=== PATIENT | female | born 1960 | race Caucasian/White ===

== ENCOUNTER 2024-08-01 04:57 | Observation (INO) ==
--- NOTE | 2024-06-29 12:11 | PAT Medication Instructions ---
Medication Instructions Date of Service June 29, 2024 Home Medications atorvastatin 10 mg tablet 10 mg PO QAM metoprolol succinate 25 mg tablet,extended release 24 hr 25 mg PO QAM multivitamin (Daily Multi-Vitamin tablet) 1 tab PO DAILY cranberry fruit 450 mg tablet (cranberry) 450 mg PO DAILY fluticasone propionate 50 mcg/actuation nasal spray,suspension 1 spray intranasal DAILY Continue as directed fluticasone propionate 50 mcg/actuation nasal spray,suspension 1 spray intranasal DAILY DO NOT take the morning of surgery multivitamin (Daily Multi-Vitamin tablet) 1 tab PO DAILY cranberry fruit 450 mg tablet (cranberry) 450 mg PO DAILY Take morning of surgery With a small sip of water, OTHERWISE NOTHING TO EAT OR DRINK AFTER MIDNIGHT: atorvastatin 10 mg tablet 10 mg PO QAM metoprolol succinate 25 mg tablet,extended release 24 hr 25 mg PO QAM Other Notes If you have any questions please call us at [phone] or [phone] or [phone] or [phone]
--- NOTE | 2024-07-05 13:12 | Anesthesiology Consultation ---
Date of Service July 05, 2024 Assessment & Plan (1) Encounter for pre-operative examination: Chart Review Chart Review: Acceptable Risk for Surgery and Patient seen in Pre Admission Testing Pt currently scheduled as 23 hours observation. If surgeon decides to change patient to Same Day Joint, patient would be acceptable risk for EVIN, pending patient is motivated, has good support and surgeon's office completes Same Day Joint Program preop requirements. Per PAT appt on 07/05/24, no recent illness/disease exposures, illness related symptoms, or recent illness/disease positive tests. Will leave to surgeon's discretion if preop Covid testing needed Teaching & Discussion Pre-Anesthesia Teaching/Discussion Notes: Instructed NPO after midnight before surgery,except medications with 15 cc of water. Medication instructions provided according to the PAT guidelines. History Surgery Operation Date: 08/01/24 10:20 Proposed Procedures p Left Anterior Total Hip Arthroplasty - Indra Tobin DO Height/Weight Height: 5 ft 6 in Weight: 80.6 kg Allergies Allergy/AdvReac Type Severity Reaction Status Date / Time adhesive tape Allergy Unknown Redness of Verified 06/28/24 10:46 Skin Medications Home Medications Medication Instructions Recorded Confirmed Last Taken atorvastatin 10 mg tablet 10 mg PO QAM 04/26/24 06/28/24 Unknown metoprolol succinate 25 mg 25 mg PO QAM 04/26/24 06/28/24 Unknown tablet,extended release 24 hr multivitamin (Daily Multi-Vitamin 1 tab PO DAILY 04/26/24 06/28/24 Unknown tablet) cranberry fruit 450 mg tablet 450 mg PO DAILY 06/28/24 06/28/24 Unknown (cranberry) fluticasone propionate 50 1 spray intranasal DAILY 06/28/24 06/28/24 Unknown mcg/actuation nasal spray,suspension Past Medical History Medical History Dyslipidemia History of palpitations (2021) was evaluated by cardio @ [facility] - was discharged did have heart monitor and ECHO- no issues per patient HTN (hypertension) Hx: UTI (urinary tract infection) no current urinary symptoms Osteoarthritis Pulmonary nodule benign; yearly monitoring Seasonal allergies Snores - unknown with apnea - no hx of sleep study Exercise / Class Metabolic Activity III < 4 Walking/Shop/Light housework (one flight of stairs- no chest pain, mild SOB due to hip pain and stiffness ) Past Surgical History Surgical History Hx of arthroscopic knee surgery right Hx of colonoscopy Hx of tubal ligation Past Anesthesia History No Hx of Anesthesia Complications and No Family Hx of Anesthesia Complications History of PONV No Hx of PONV and No Hx of Motion Sickness Social History Smoking Status: Current every day smoker Smoking cigarettes per day: 20 cigs per day - advised Do You Dip or Chew Tobacco: No Hx Alcohol Use: Yes alcohol intake frequency: a few times a month Hx Substance Use: No substance use type: does not use Review of Systems - Chronic post nasal drip- stable/chronic Patient denies chest pain, shortness of breath at rest, dyspnea on exertion, reflux, cough, wheezing, palpitations. No hx of seizures, stroke, MD. No hx of blood clots or blood transfusions Physical Exam Vital Signs VITALS BP 114/76 P 84 TEMP 98.0 SP02 96% RESP 16 Constitutional no acute distress ENMT Mouth: no TMJ clicking Thyromental Distance: < 3.5 Finger Breadths (3.0) Mallampati Class: III Neck neck extension not limited Respiratory normal respiratory effort; no respiratory distress Auscultation: lungs clear to auscultation bilaterally; no wheezes Cardiovascular Rate/Rhythm: regular rate and regular rhythm Heart Sounds: no murmur Vessels: no carotid bruit Musculoskeletal Spine: + kyphosis; no pain with cervical ROM Extremities: extremities normal to inspection Psychiatric Orientation: alert Lab Results Anesthesia Preop Results Results Anesthesia Widget: WBC 10.33 K/ul (4.8-10.8) 07/05/24 Hgb 15.5 g/dl (12.0-16.0) 07/05/24 Hct 45.9 % (37.0-47.0) 07/05/24 Plt 238 K/uL (130-400) 07/05/24 Na 137 mmol/L (136-145) 07/05/24 K 4.2 mmol/L (3.5-5.1) 07/05/24 Cl 104 mmol/L (98-107) 07/05/24 CO2 24 mmol/L (21-32) 07/05/24 BUN 12 mg/dl (6-23) 07/05/24 Creat 0.58 mg/dl (0.6-1.2) L 07/05/24 Glucose Level 99 mg/dl (70-99(Fasting)) 07/05/24 PT 10.5 Seconds (9.0-12.0) 07/05/24 PTT 32 Seconds (21-31) H 07/05/24 INR 1.0 (0.9-1.1) 07/05/24 Blood Type A Positive 07/05/24 Antibody Screen NEGATIVE 07/05/24 Testing Electrocardiogram Date: 07/05/24 Findings: + NSR @ (79bpm) Left anterior fascicular block Possible inferior infarct, age undetermined (Discussed with Dr Chinchilla- patient with good functional status, ECHO from 2022 without acute issues, [employer] EKG from 01/30/23 scanned into chart (similar in appearance by personal visual inspection)- patient can proceed as scheduled) Chest X-Ray Date: 07/05/24 Findings: + NAD Echocardiogram Date: 04/01/23 EF: 55-59% LV Function: normal RWMA: + none Other Findings: + diastolic dysfunction (Grade I ); no LVH Moderate mitral annular calcification. Mitral valve chordae are focally calcified. Mitral stenosis is absent. Significant MR is absent. Other Testing Holter monitor 03/09/23= "The underlying rhythm was predominantly sinus. Overall PAC and PVC burden was low. . No other atrial or ventricular arrhythmias recorded"
--- OUTSIDE RECORDS SUMMARY | 2024-08-01 05:03 | External Medical Summary | Summary of Care ---
Author Name Unknown Organization [facility] Address [address] [facility] [place] [address] Phone [phone] Care Team Providers Care Caustics Loader Name Role Phone Samra Israel PA-C Primary Care Provider Reason for Visit * Reason Comments eRx-Medication Refill Encounter Details Date Type Department Care Team ([facility] Contact Info) Description 07/20/2024 Refill [facility] [address] [place] [address] Samra Israel PA-C [address] [place] [phone] Allergies No known active allergiesdocumented as of this encounter (statuses as of 07/23/2024) Medications MULTI-VITAM OR SOLN qd 0 07/13/20 03 Active Cranberry 1000 MG Capsule One daily Active Acetaminophen 500 MG Oral Tablet Take 2 Tablets by mouth every 6 hours as needed. Active Atorvastatin Calcium 10 MG Oral Tablet (Lipitor)Indic ations:Dyslipi demia, goal LDL below 160 TAKE 1 TABLET BY MOUTH AT BEDTIME 90 Tablet 3 12/26/19 24 Active methylPREDNISo lone 4 MG Oral Tablet Therapy Pack (Medrol Dosepack) follow package directions Fill only if requested 21 Tablet 02/11/20 24 Active Fluticasone Propionate 50 MCG/ACT Nasal Suspension (Flonase)Indic ations:Acute sinusitis Administer 2 Sprays into each nostril in the morning. 48 g 1 05/11/20 24 Active Metoprolol Succinate ER 25 MG Oral Tablet Extended Release 24 Hour (toPROL XL) Take 1 Tablet by mouth in the morning. 90 Tablet 3 07/23/20 24 Active Metoprolol Succinate ER 25 MG Oral Tablet Extended Release 24 Hour (toPROL XL) Take 1 Tablet by mouth in the morning. In the morning.. 90 Tablet 3 07/02/20 23 024 Discontinued documented as of this encounter (statuses as of 07/23/2024) Active Problems Problem Noted Date Diagnosed Date Overweight (BMI 25.0-29.9) 07/14/2022 Tobacco use disorder 07/14/2022 Incidental lung nodule, > 3mm and < 8mm 03/31/20 Overview (09/02/2022): Stable 07/2022; nodules up to 5mm. Repeat after 1 year Hyperlipidemia with target LDL less than 130 01/2012 Overview (01/14/2016): ICD-10 update of inactive term HTN, GOAL BELOW 140/90 08/02/2009 Overview (08/02/2009): Modified per HTN protocol #16. Other allergic rhinitis 10/12/2008 Overview (07/07/2017): ICD-10 update of inactive term documented as of this encounter (statuses as of 07/23/2024) Resolved Problems Problem Noted Date Diagnosed Date Resolved Date Ocular migraine 05/11/2013 10/10/2019 Obesity, Class I, BMI 30.0-3 4.9 (see actual BMI) 08/18/2012 07/14/2022 ADVANCE DIRECTIVE INFORMATION 05/21/2005 11/25/2019 Overview (05/21/2005): No, Advance Directive brochure given to patient at prior appointment. HYPERTENSION NOS 08/06/2009 Overview (08/06/2009): Modified per HTN protocol #16. documented as of this encounter (statuses as of 07/23/2024) Immunizations Name Administration Dates Next Due COVID-19 mRNA, LNP-s, No Pre serve, 2-Dose Series (Pfizer) 08/13/2021,12/31/2020,12/10/2020 COVID-19, LNP-s, No Preserve , Mitch-sucrose, Ages 12+ (Pfizer) 05/07/2022 PPD 05/08/2014 Pneumococcal Conjugate Vacci ne, 20-valent ([id number]) 01/12/2023 Seasonal Influenza, PF, 6 M & above, IM , (FluLaval or Fluzone) 07/06/2023,07/14/2022,07/08/2021,2019,10/10/2019 TD - Tetanus/Diptheria (ADULT) 02/15/2008 TD, Preservative Free 08/31/2013 documented as of this encounter Social History Tobacco Use Types Packs/Day Years Used Date Smoking Tobacco: Every Day Cigarettes 1 40 Smokeless Tobacco: Never Alcohol Use Standard Drinks/Week Comments Yes 0 (1 standard drink = 0.6 oz pur e alcohol) occasional PHQ-2 Answer Date Recorded PHQ Adult Total Score 0 12/23/2023 Utilities Answer Date Recorded Do you have trouble paying y our heating, water, or electric bill? (Adult - for ages 18 years and over) Not on file 03/01/2024 Is your family able to pay t he heat, water, or electric bill? (Household - for ages 0-17 years) Not on file 03/01/2024 Does your family have access to good internet? (Household - for ages 0-17 years) Not on file 03/01/2024 Social Connections Answer Date Recorded How often do you feel lonely or isolated from those around you? 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 Authorizing Provider: SAMRA ISRAEL * Telephone Encounter - Sendori, [facility] - 07/22/2024 10:33 AM EST Pending Prescriptions: Disp Refills Metoprolol Succinate ER 25 MG Oral Tablet *90 Tab*3 Sig: Take 1 Tablet by mouth in the morning. * Telephone Encounter - Anne-Marie Pate RPh - 07/21/2024 2:45 PM ESTPending Prescriptions: Disp Refills Metoprolol Succinate ER 25 MG Oral Tablet *90 Tab*3 Sig: Take 1 Tablet by mouth in the morning. * Telephone Encounter - Anne-Marie Pate RPh - 07/21/2024 2:42 PM EST Patient previously prescribed medication by cardiology. To follow up with cardiology as needed. Provider requesting PCP to take over refills. Please approve if agreeable. Thanks, Anne-Marie Pate, Sandra Clinical Pharmacist [facility] 07/21/2024, 2:43 PM documented in this encounter Plan of Treatment Health Maintenance Due Date Last Done Comments HPV/Co-Test 1990 Cologuard 2005 Sigmoidoscopy 2005 Zoster Vaccines (1 of 2) 2010 DTap/Tdap Vaccines (1 - Tdap) 09/01/2013 08/31/2013, 02/15/2008 Fecal Occult Blood Test 06/30/2014 06/30/2013, 07/13 COVID-19 Vaccine ( season) 2024 05/07/2022, 08/13/2021, 12/31/2020, Additional history exists Influenza Vaccine (FLU shot) (#1) 2024 07/06/2023, 07/14/2022, 07/08/2021, Additional history exists Mammogram 08/07/2024 08/07/2023, 1102/2023, 06/23/2022, Additional history exists Depression Screening 12/22/2024 12/23/2023 GFR 03/18/2025 03/18/2024, 07/0 01/2023, 01/30/2023, Additional history exists Cervical Cancer Screening 07/14/2025 Pap Smear 07/14/2025 07/14/2022, 01/13, 03/05/2016, Additional history exists Albumin/Creatinine Ratio 07/06/2026 07/06/2023, 06/16 Diabetes Screening 03/18/2027 03/18/2024, 0 03/18/2023, 01/30/2023, Additional history exists Colonoscopy 02/22/2029 02/22/2019, 02/22/2019 Colorectal Cancer Screening 02/22/2029 Lipid Panel 03/18/2029 03/18/2024, 07/0 01/2023, 03/07/2022, Additional history exists Pneumococcal Vaccine: Pediatrics (0 to 5 Years) and At-Risk Patients (6 to 64 Years) Completed 01/12/2023 Lung Cancer Screening Completed 09/10/2023, 022 HPV (Gardasil) Vaccine Aged Out No lo nger eligible based on patient's age to complete this topic Hepatitis B Vaccine Aged Out No longe r eligible based on patient's age to complete this topic MENINGOCOCCAL (MENACTRA/MENVEO) Aged Out No longer eligible based on patient's age to complete this topic documented as of this encounter Medical Devices Not on filedocumented as of this encounter Care Teams Caustics Loader Relationship Specialty Start Date End Date Samra Israel PA-C [address] [place] [address] [phone] PCP - General Physician Dairy Feed Mixing Operator 12/19/18 documented as of this encounter
--- OUTSIDE RECORDS SUMMARY | 2024-08-01 05:03 | External Medical Summary | Summary of Care ---
Author Name Unknown Organization [facility] Address [address] [facility] [place] [address] Phone [phone] Care Team Providers Care Adon Name Role Phone Samra Hess PA-C Primary Care Provider Reason for Visit * Reason Onset Date Comments Medication Refill 07/20/2024 Encounter Details Date Type Department Care Team ([facility] st Contact Info) Description 07/20/20[address] [facility] [address] [place] [address] Merritt Briones PA-C [address] [place] [address] Dyslipidemia, goal LDL below 160 Allergies No known active allergiesdocumented as of this encounter (statuses as of 07/21/2024) Medications Medication Sig Dispensed Refills Start Date End Date Status MULTI-VITAM OR SOLN qd 0 07/13/2003 Activ e Cranberry 1000 MG Capsule One daily Active Acetaminophen 500 MG Oral Tablet Take 2 Tablets by mouth every 6 hours as needed. Active Metoprolol Succinate ER 25 MG Oral Tablet Extended Release 24 Hour (toPROL XL) Take 1 Tablet by mouth in the morning. In the morning.. 90 Tablet 3 07/02/2023 Active Atorvastatin Calcium 10 MG Oral Tablet (Lipitor)Indication s:Dyslipidemia, goal LDL below 160 TAKE 1 TABLET BY MOUTH AT BEDTIME 90 Tablet 3 12/26/2023 Active methylPREDNISolone 4 MG Oral Tablet Therapy Pack (Medrol Dosepack) follow package directions Fill only if requested 21 Tablet 02/11/2024 Active Fluticasone Propionate 50 MCG/ACT Nasal Suspension (Flonase)Indication s:Acute sinusitis Administer 2 Sprays into each nostril in the morning. 48 g 1 05/11/2024 Active documented as of this encounter (statuses as of 07/21/2024) Active Problems Problem Noted Date Diagnosed Date Overweight (BMI 25.0-29.9) 07/14/2022 Tobacco use disorder 07/14/2022 Incidental lung nodule, > 3mm and < 8mm 03/31/20 19 Overview: Stable 07/2022; nodules up to 5mm. Repeat after 1 year Hyperlipidemia with target LDL less than 130 01/2012 Overview: ICD-10 update of inactive term HTN, GOAL BELOW 140/90 08/02/2009 Overview: Modified per HTN protocol #16. Other allergic rhinitis 10/12/2008 Overview: ICD-10 update of inactive term documented as of this encounter (statuses as of 07/21/2024) Resolved Problems Problem Noted Date Diagnosed Date Resolved Date Ocular migraine 05/11/2013 10/10/2019 Obesity, Class I, BMI 30.0-3 4.9 (see actual BMI) 08/18/2012 07/14/2022 ADVANCE DIRECTIVE INFORMATION 05/21/2005 11/25/2019 Overview: No, Advance Directive brochure given to patient at prior appointment. HYPERTENSION NOS 08/06/2009 Overview: Modified per HTN protocol #16. documented as of this encounter (statuses as of 07/21/2024) Immunizations Name Administration Dates Next Due COVID-19 mRNA, LNP-s, No Pre serve, 2-Dose Series (i[employer]ulfillment) 08/13/2021,12/31/2020,12/10/2020 COVID-19, LNP-s, No Preserve , Mitch-sucrose, Ages 12+ (Pfizer) 05/07/2022 PPD 05/08/2014 Pneumococcal Conjugate Vacci ne, 20-valent ([id number]) 01/12/2023 Seasonal Influenza, PF, 6 M & [...] years and over) Not on file 03/01/2024 Sex and Gender Information Value Date Recorded Sex Assigned at Female 10/29/2020 11:31 AM EST Gender Identity Female 10/29/2020 11:31 AM EST Sexual Orientation Straight 10/29/2020 11 :31 AM EST Job Start Date Occupation Industry Not on file Not on file Not on file documented as of this encounter Miscellaneous Notes * Telephone Encounter - Indra Petty [facility] - 07/21/2024 2:13 PM ESTRefused Prescriptions: Disp Refills Atorvastatin Calcium 10 MG Oral Tablet (Li*90 Tab*3 Sig: Take 1Tablet by mouth at bedtime.Refused By: INDRA PETTY for Refusal: Duplicate Request------ documented in this encounter Plan of Treatment [...] 07/08/2021, Additional history exists Mammogram 08/07/2024 08/07/2023, 110 02/2023, 06/23/2022, Additional history exists Depression Screening 12/22/2024 [...] Not on filedocumented as of this encounter Visit Diagnoses Diagnosis Dyslipidemia, goal LDL below 160 Other and unspecified hyperlipidemia documented in this encounter Care Teams Adon Relationship Specialty Start Date End Date Samra Hess PA-C [address] [place] [id number] PCP - General Physician Health And Wellness Sales Consultant 12/19/18 documented as of this encounter
--- OUTSIDE RECORDS SUMMARY | 2024-08-01 05:03 | External Medical Summary | Summary of Care ---
Author Name Unknown Organization [facility] Address [address] [facility] [place] [address] Phone [phone] Care Team Providers Care Cocoa Butter Filter Operator Name Role Phone Samra Hess PA-C Primary Care Provider Reason for Visit * Reason Onset Date Comments Medication Refill 07/20/2024 Encounter Details Date Type Department Care Team (Late st Contact Info) Description 07/20/2024 Refill Cardiology, [facility] [address] [place] [phone] Kirsten Villafuerte CRNP [address] [facility] [place] [phone] Allergies No known active allergiesdocumented as of [...] mRNA, LNP-s, No Pre serve, 2-Dose Series (Tradyo) 08/13/2021,12/31/2020,12/10/2020 COVID-19, LNP-s, No Preserve , Mitch-sucrose, Ages 12+ (Pfizer) 05/07/2022 PPD 05/08/2014 Pneumococcal Conjugate Vacci ne, 20-valent ([id number]) 01/12/2023 Seasonal Influenza, PF, 6 M & [...] encounter Miscellaneous Notes * Telephone Encounter - Felipe Lopez - 07/21/2024 2:18 PM ESTRefused Prescriptions: Disp Refills Metoprolol Succinate ER 25 MG Oral Tablet *90 Tab*3 Sig: Take 1Tablet by mouth in the morning. In the morning..Refused By: FELIPE LOPEZason for Refusal: Duplicate Request documented in this encounter Plan of Treatment [...] filedocumented as of this encounter Care Teams Cocoa Butter Filter Operator Relationship Specialty Start Date End Date Samra Hess PA-C [address] [place] [address] [place] [phone] PCP - General Physician Labourers 12/19/18 documented as of this encounter
[2024-08-01] MEDS: LR 500ML BOLUS, THEN 15ML/HR IV SCH (05:51)
[2024-08-01] MEDS: GABAPENTIN 300 MG CAP PO SCH (05:52)
[2024-08-01] MEDS: dexAMETHasone**PF** 10 MG/ML VIAL IV SCH (05:52)
[2024-08-01] MEDS: ACETAMINOPHEN 500 MG TAB PO SCH (05:52)
[2024-08-01] MEDS: LR 60ML/HR IV SCH (05:52)
[2024-08-01] MEDS ORDERED: BUPIVACAINE 0.5 % 5 MG/1 ML PF 10ML VIAL ONE (06:17)
[2024-08-01] MEDS ORDERED: MIDAZOLAM HCL 1 MG/ML 2ML VIAL ONE (06:38)
[2024-08-01] MEDS ORDERED: fentaNYL citrate PF 100 MCG/2 ML VIAL ONE (06:39)
--- NOTE | 2024-08-01 06:39 | History & Physical Bridge Note ---
Date of Service August 01, 2024 History & Physical Bridge Note I have examined the patient, reviewed the History & Physical and in the interval since the performance of the History & Physical I have noted the following changes of clinical significance: no changes noted
[2024-08-01] MEDS ORDERED: ePHEDrine sulfate 50 MG/ML AMP IV PRN (06:40)
[2024-08-01] MEDS ORDERED: ATROPINE SULFATE 0.1 MG/ML 10ML SYR IV PRN (06:40)
[2024-08-01] MEDS ORDERED: ONDANSETRON INJ 2 MG/ML 2 ML VIAL IV PRN ×2 (06:40→08:29)
[2024-08-01] MEDS ORDERED: fentaNYL citrate PF 100 MCG/2 ML VIAL IV PRN (06:40)
[2024-08-01] MEDS: TRANEXAMIC ACID 1,000 MG **IV Pre-op IV SCH (06:46)
[2024-08-01] MEDS: ceFAZolin 2000MG 2,000 MG/15 ML SYR IV SCH ×2 (06:57→15:55)
[2024-08-01] MEDS ORDERED: PHENYLEPHRINE HCL 10 MG/ML VIAL ONE (07:46)
[2024-08-01] MEDS ORDERED: LIDOCAINE 2% 2 ML VIAL/AMP(20MG/ML) INFIL ONE (07:46)
[2024-08-01] MEDS ORDERED: PROPOFOL IV EMULSION 10 MG/ML 20 ML VIAL IV ONE (07:46)
[2024-08-01] MEDS: ROPIV 0.5% 246mg, Ketorolac 30mg, EPINEPHrine 0.5mg in NSS INFIL SCH (07:58)
[2024-08-01] MEDS: TRANEXAMIC ACID 1,000 MG **IV Intra-op IV SCH (08:00)
[2024-08-01] MEDS: ORTHO JOINT ANESTHETIC ONE (08:04)
--- NOTE | 2024-08-01 08:05 | Operative Report ---
PG Post Operative Report Pre & Post Diagnosis Operation Date: 08/01/24 07:00 Pre-Op Diagnosis: Left Hip Osteoarthritis Post-Op Diagnosis: Left Hip Osteoarthritis I identified the patient and participated in the time-out.: Yes Procedure Operation Date: 08/01/24 07:00 Actual Procedures p Left Anterior Total Hip Arthroplasty(Left) - Indra Tobin DO Surgeon Indra Tboin DO Manager Advanced Kirsten Luque PA-C Estimated Blood Loss 150 Findings Consistent with Post-Op Diagnosis Specimens Left femoral head Description of Procedure Implants used I used a ZimmerBiomet total hip arthroplasty system with a size 3 standard offset Avenir Complete stem, a 48 mm G7 cup with a 25mm screw, an E1 polyethylene liner, a 32 mm ceramic head with a 0 neck. Aubree arrived at the hospital for the above procedure. She was seen in the preoperative holding area and the operative extremity was identified and signed. She was given a spinal anesthetic, a preoperative antibiotic, and TXA. She was then taken back to the operating room and laid on the table in the supine position. She was given basic sedation. The operative leg was secured to a Puristst leg positioner. The hip was then prepped and draped in sterile fashion. A timeout was done and the patient and the operative extremity was properly identified. An anterior approach was used. Dissection was taken down through the fascia and the tensor muscle belly was retracted laterally and the rectus was retracted medially. The circumflex vessels were identified and ligated. The capsule was then incised and tagged for later repair. The femoral neck was then cut and the femoral head was removed. The acetabulum was exposed. Time was spent doing a complete circumferential labral release. Sequential reaming of the acetabulum up to a size 47 reamer was done. Final reamings were done under fluoroscopy to ensure appropriate version. A Biomet 48 mm G7 cup was then impacted into place. A single 25 mm screw was placed. The E1 polyethylene liner was then snapped into place. Surrounding soft tissues were then injected with 100 cc of an orthopedic pain control cocktail. The proximal femur was then exposed. Sequential broaching up to a size 3 broach was done. Off that broach a size 32 head with a 0 neck was trialed. The hip was reduced and fluoroscopic images showed anatomic alignment of the implants in acceptable length. The broach was removed. The final size 3 standard offset Avenir Complete stem was then impacted into place. A ceramic 32 mm head with a 0 neck was then impacted onto the stem and the hip was reduced. Final fluoroscopic images showed anatomic alignment of the hip. The capsule was then closed with #1 Vicryl suture. A dilute betadyne lavage was then done for 3 minutes. The joint was then irrigated with normal saline solution. The fascia was closed with #1 PDS suture. Skin was closed with 2-0 Vicryl, rona, and a Silverlon dressing. She was then transferred to a hospital bed and taken to the post anesthesia care unit in stable condition. She tolerated the procedure well. Kirsten Luque PA-C was present for the entire procedure. He was critical for patient positioning, prepping, draping, retraction exposure, wound closure and application of sterile dressing. I attest to the content of the Intraoperative Record and any orders documented therein. Any exceptions are noted below.
[2024-08-01] MEDS ORDERED: HYDROmorphone INJ 0.5 MG/0.5 ML SYR IV PRN (08:29)
[2024-08-01] MEDS ORDERED: MAGNESIUM HYDROXIDE SUSP 30 ML UDC PO PRN (08:29)
[2024-08-01] MEDS ORDERED: oxyCODONE HCL IR 5 MG TAB (IMMEDIATE RELEASE) PO PRN (08:29)
[2024-08-01] MEDS ORDERED: diphenhydrAMINE Capsule 25 MG CAP PO PRN (08:29)
[2024-08-01] MEDS ORDERED: NALOXONE HCL 0.4 MG/1 ML VIAL/CARP IV PRN (08:29)
[2024-08-01] MEDS ORDERED: METOCLOPRAMIDE HCL INJ 5 MG/ML 2 ML VIAL IV PRN (08:29)
[2024-08-01] MEDS ORDERED: bisacodyL 10 MG SUPP PR PRN (08:29)
--- NOTE | 2024-08-01 08:53 | XRay Report ---
XR hip 1V LT w pelvis CLINICAL HISTORY: Postoperative evaluation. COMPARISON: Left hip radiographs July 05, 2024. FINDINGS: Alignment of the total left hip arthroplasty is anatomic. There is no periprosthetic fract ure or unexpected radiopaque foreign bodies. There are skin rona. An acetabular screw is in place. IMPRESSION: Expected findings following total left hip arthroplasty. ACT 112: Negative or not required by law. Electronically signed by: Akin Duarte M.D. 08/01/2024 8:52 AM
[2024-08-01] MEDS ORDERED: NON-FORMULARY MEDICATION (Cranberry Fruit [Cranberry] 450 mg Tablet) PO SCH (09:00)
[2024-08-01] MEDS ORDERED: NON-FORMULARY MEDICATION (Multivitamin [Daily Multi-Vitamin] tablet) PO SCH (09:00)
--- NOTE | 2024-08-01 10:00 | Fluoroscopy Report ---
FL hip LT 1V CLINICAL HISTORY: LEFT ANTERIOR EVIN COMPARISON STUDY: Left hip radiographs July 05, 2024. FLUOROSCOPY TIME: 13 seconds. Ka, r: 1.3352 mGy FLUOROSCOPIC IMAGES: 1 FINDINGS: Fluoroscopy was provided during anterior total left hip arthroplasty. There is no periprost hetic fracture or unexpected radiopaque foreign body. IMPRESSION: Fluoroscopy provided during total anterior left hip arthroplasty. ACT 112: Negative or not required by law. Electronically signed by: Akin Duarte M.D. 08/01/2024 9:59 AM
[2024-08-01] MEDS: ATORVASTATIN 10 MG TAB PO SCH (13:23)
[2024-08-01] MEDS: MULTIVITAMIN TAB PO SCH (13:24)
[2024-08-01] MEDS: DOCUSATE SODIUM 100 MG CAP PO SCH (13:24)
[2024-08-01] MEDS: FLUTICASONE PROPIONATE NA SPR 16 GM BTL SCH (13:24)
[2024-08-01] MEDS: METOPROLOL SUCC 25MG EXT REL TAB PO SCH (13:24)
[2024-08-01] MEDS: KETOROLAC TROMETHAMINE 15 MG/ML VIAL IV SCH (13:25)
--- NOTE | 2024-08-01 15:42 | Anesthesiology Progress Note ---
Date of Service August 01, 2024 Anesthesia Post Procedure Vital Signs Vital Signs: Temp Pulse Pulse Resp BP BP Pulse Ox 08/01/24 14:53 36.7 C 82 16 122/75 97 08/01/24 13:05 36.5 C 79 18 129/78 96 08/01/24 11:59 84 16 123/74 98 08/01/24 11:10 64 16 118/77 96 08/01/24 10:31 36.5 C 73 16 102/64 97 08/01/24 09:45 58 L 15 102/58 L 98 08/01/24 09:35 36.5 C 65 17 106/65 97 08/01/24 09:25 64 17 102/62 95 08/01/24 09:15 64 14 98/59 L 94 08/01/24 09:05 69 15 101/62 95 08/01/24 08:55 74 17 102/56 L 95 08/01/24 08:45 72 18 100/63 98 08/01/24 08:35 36.2 C L 82 16 88/59 L 99 08/01/24 05:35 36.7 C 82 16 133/89 98 O2 Del Method O2 Flow Rate 08/01/24 14:53 Room Air 08/01/24 13:05 Room Air 08/01/24 11:59 Room Air 08/01/24 11:10 Room Air 08/01/24 10:31 Room Air 08/01/24 09:45 Room Air 08/01/24 09:35 Room Air 08/01/24 09:25 Room Air 08/01/24 09:15 Room Air 08/01/24 09:05 Room Air 08/01/24 08:55 Room Air 08/01/24 08:45 Room Air 08/01/24 08:35 Oxymask 6 08/01/24 05:35 Room Air Transfer of Care Handoff Completed per policy Notes Mental Status: alert / awake / arousable and participated in evaluation Patient Amnestic to Procedure: Yes Nausea / Vomiting: adequately controlled Pain: adequately controlled Airway Patency, RR, SpO2: stable & adequate BP & HR: stable & adequate Hydration State: stable & adequate Neuraxial Anesthesia: was administered and sensory block is resolving Anesthetic Complications: no major complications apparent and Pt Satisfied with anesthetic care
[2024-08-01] MEDS ORDERED: Nursing to Pharmacy Communication SCH (18:00)
[2024-08-01] MEDS: SENNA 8.6 MG TAB PO SCH (20:12)
--- NOTE | 2024-08-02 06:07 | Orthopedic Progress Note ---
Date of Service August 02, 2024 Assessment & Plan (1) Status post left hip replacement: Overall she is doing very well. She is not having much pain in the left hip. She will be seen by physical therapy today for ambulation and range of motion exercises. She is on aspirin for DVT prophylaxis. She can be discharged home later today. She will follow-up orthopedics in 2 weeks. Kassy Mak was seen and examined at bedside this morning. Overall she is doing fairly well. She is not having much pain in the left hip. She been up and ambulating to the bathroom. She has no complaints.. Review of Systems All systems reviewed & are unremarkable except as noted in HPI & below. Physical Exam On physical exam of the left hip, the dressing is clean and dry. Her leg is out full extension. She has active dorsiflexion plantarflexion of her left ankle.. Results & Data Results & Data Laboratory Results . Diagnostic Findings Postoperative x-rays of the left hip show the prosthesis to be in anatomic alignment without any evidence of fracture, dislocation, or loosening.. PG Care Time/CCT Total # of Minutes Spent Total Time Spent with Patient: Total time spent is greater than 50% in coordination of care (as documented) at patient's floor/unit and/or counseling patient: Coding Level of Care Code 34262 Post Operative Follow-Up Diagnoses Status post left hip replacement Z96.642
--- NOTE | 2024-08-02 06:08 | Discharge Summary ---
Date of Service August 02, 2024 Principal Diagnosis Same as "Discharge Diagnosis" noted below under Discharge Instructions. Discharge Exam On physical exam of the left hip, the dressing is clean and dry. Her leg is out full extension. She has active dorsiflexion plantarflexion of her left ankle.. Discharge Data Procedures Performed Operation Date: 08/01/24 07:00 Actual Procedures p Left Anterior Total Hip Arthroplasty(Left) - Indra Tobin DO Ordered Studies 08/01/24 FL hip LT 1V Routine Hospital Course (1) Status post left hip replacement: On August 01, 2024 Aubree arrived at [facility] and underwent a left hip replacement without complication. She had a spinal anesthetic. Postoperatively she was started on aspirin for DVT prophylaxis and transferred to the general orthopedic floors. Her hospital course was uneventful. On postop day #1, her vital signs were stable and her pain was well-controlled. She was able to participate well with physical therapy doing ambulation and range of motion exercises. She was then discharged to home. She will follow-up with orthopedics in 2 weeks. PG Care Time/CCT Total # of Minutes Spent Total Time Spent with Patient: Total time spent is greater than 50% in coordination of care (as documented) at patient's floor/unit and/or counseling patient: Discharge Plan Discharge Items Patient Disposition: Home - Self-Care Reason For Visit: Left Hip Arthritis Discharge Diagnosis: Left hip replacement Activity: Per Instructions section Non-emergency contact: Surgeon Call non-emergency contact if: your wound has increased redness and your wound has increased drainage Follow-up/Referrals: Samra Hess PA-C [Primary Care Provider] - Diet: Regular Addtl Attending Provider Instructions: Activity and Therapy Recommendations: * If you are using [facility] then therapy will be provided at your home until they feel you have accomplished all of your goals. * If you are using [facility] then Physical Therapy will be provided until they feel you are ready to start Outpatient Physical Therapy. * If you are not using home therapy then Outpatient Physical Therapy should start about 3-5 days from your day of surgery. Therapy will last about 6-10 weeks * You were shown a series of exercises in the hospital. Do these exercises three times each day including the exercises you were shown in physical therapy. * Get up and walk several times each day.~ For the first four weeks, try not to stand or walk for more than one hour at a time. If you do stand or walk for more than one hour, you will not hurt anything, but your leg will likely swell.~~ * As you feel comfortable, you may change from the walker or crutches to a cane and~then to independent walking. Medications: * Narcotic You will likely be sent home from the hospital with a prescription for the narcotic pain medication that worked best throughout your stay. * Cefadroxil -take the antibiotic twice a day for 10 days to help prevent infection. * Aspirin Most patients will be required to take Aspirin 81mg twice a day for 6 weeks after surgery. This is obtained [id number] and a prescription is not necessary. * Other medications may be prescribed for specific circumstances. If you have any questions, please call the office at . * Resume previous home medications unless otherwise instructed TEDs/Elastic Stockings: The white elastic stockings help limit swelling and prevent blood clots from forming in your legs. The more you wear them, the more they work. Wear them for six weeks. Dressing Care: Leave the Silverlon dressing in place for 7 days. After 7 days you may remove the dressing. If the incision is not draining then you may leave the rona open to air. If there is a little bit of drainage or if the rona are getting stuck on your clothing then cover the incision with a dry dressing. The rona will be removed at your 2 week follow-up appointment. Showering: You may shower with the Silverlon dressing in place. Do not let the shower spray hit the dressing directly. Pat the Silverlon dressing dry. If the dressing becomes wet underneath, then simply remove the dressing. Keep the incision dry until you are 7 days out from the day of surgery. After 7 days you may remove the Silverlon dressing and shower with the rona exposed. Let soapy water run over the rona and pat them dry. Do not scrub or soak the incision. Diet: You may resume your previous diet. Things To Watch For: * Drainage from the incision site that occurs more than one week after your surgery. * Increased redness at the incision site. * Fever above 102 degrees Fahrenheit. * Unusual chest pain or shortness of breath. * Call [facility] at with any of the above problems Follow-Up Visit: Follow-up with Dr. Tobin's PA (Indra Reddy) 2-3 weeks after your day of surgery. He will remove your rona and answer any questions. If you have any additional questions or concerns, Dr Tobin is usually in the office at the same time and will be available An appointment was probably scheduled when you signed-up for surgery in the office. If you have any questions call Office Instructions: More detailed instructions as well as Frequently Asked Questions were provided in a folder by our office when you signed-up for surgery. Please review these instructions when you get home. If you have any further questions or concerns, please feel free to call the office at [phone] Pending Studies at Discharge: No Stand-Alone Forms: My [facility] [employer], Smoking Cessation Medications and DC Order Prescriptions: New oxycodone 5 mg Tablet 5 mg PO Q4H PRN (Reason: pain) Qty: 30 0RF cefadroxil 500 mg capsule 500 mg PO BID 10 Days Qty: 20 0RF aspirin 81 mg Tablet,Delayed Release (Dr/Ec) 81 mg PO BID 42 Days Qty: 84 0RF Continued metoprolol succinate 25 mg tablet extended release 24 hr 25 mg PO QAM atorvastatin 10 mg tablet 10 mg PO QAM multivitamin [Daily Multi-Vitamin] Tablet 1 tab PO DAILY fluticasone propionate [Flonase] 50 mcg/actuation [place],Suspension 1 spray INTRANASAL DAILY Rx Instructions: administer into each nostril cranberry 450 mg Tablet 450 mg PO DAILY Rx Instructions: administer with a meal Discharge Orders: Discharge Order (Routine); Ordered 08/02/24 Ordered By: Indra Tobin Admission Data Admit Date/Time: 08/01/24 08:30 Attending Provider: Indra Tobin Admit Provider: Indra Tobin Primary Care Provider: Samra Hess
[2024-08-02 07:04] VITALS: BP 145/82; PULSE 84; RESP 16; TEMP 97.9; O2SAT 96
[2024-08-02] MEDS: dexAMETHasone 4 MG TAB PO SCH (07:43)
[2024-08-02] MEDS: ASPIRIN 81 MG ECTAB PO SCH (07:43)
== END 2024-08-02 11:58 | disposition home health service (06) ==
LOC: ASU 04:57 → 3E 04:57

== ENCOUNTER 2025-02-03 06:52 | Observation (INO) ==
--- NOTE | 2024-12-23 11:31 | PAT Medication Instructions ---
Medication Instructions Date of Service December 23, 2024 Home Medications atorvastatin 10 mg tablet 10 mg PO QAM metoprolol succinate 25 mg tablet,extended release 24 hr 25 mg PO QAM multivitamin (Daily Multi-Vitamin tablet) 1 tab PO DAILY cranberry fruit 450 mg tablet (cranberry) 450 mg PO DAILY fluticasone propionate 50 mcg/actuation nasal spray,suspension 1 spray intranasal DAILY Nasal Saline [place] 1 dose UD PRN Congestion magnesium 200 mg tablet 0 mg PO DAILY DO NOT take the morning of surgery multivitamin (Daily Multi-Vitamin tablet) 1 tab PO DAILY cranberry fruit 450 mg tablet (cranberry) 450 mg PO DAILY magnesium 200 mg tablet 0 mg PO DAILY Take morning of surgery With a small sip of water, OTHERWISE NOTHING TO EAT OR DRINK AFTER MIDNIGHT: atorvastatin 10 mg tablet 10 mg PO QAM metoprolol succinate 25 mg tablet,extended release 24 hr 25 mg PO QAM fluticasone propionate 50 mcg/actuation nasal spray,suspension 1 spray intranasal DAILY Nasal Saline [place] 1 dose UD PRN Congestion (if needed) Take evening before surgery Nasal Saline [place] 1 dose UD PRN Congestion (if needed) Other Notes If you have any questions please call us at [phone] or [phone] or [phone] or [phone]
--- NOTE | 2024-12-28 12:04 | Anesthesiology Consultation ---
Date of Service December 28, 2024 Assessment & Plan (1) Encounter for pre-operative examination: - Infectious disease screening: Per assessment on 12/28/24- No known recent infectious disease contacts. Patient states she had onset of fever 12/15/24 which developed into sinus infection. She was treated with antibiotics which were completed 12/25/24. Patient states symptoms have resolved/she is at baseline (does have occasional post-nasal drip/drainage that is in line with her baseline allergies). DOS 02/03/25 (> 11 days after symptom onset). Patient advised to contact PAT/surgeon if recurrence in infectious-related symptoms prior to surgery. Nothing further needed at this time. - Outpatient joint assessment: Pt currently scheduled for inpatient pathway. If surgeon requests review for outpatient joint pathway, patient is an acceptable candidate for outpatient joint program from anesthesia standpoint pending surgeon's office assessment that patient is motivated, has good support and completes Same Day Joint Program preop requirements. - S/P Left anterior EVIN (08/01/24): S[facility] at [facility]. No issues noted per post-op anesthesia progress note. Chart Review Chart Review: Acceptable Risk for Surgery and Patient seen in Pre Admission Testing Teaching & Discussion Pre-Anesthesia Teaching/Discussion Notes: Instructed NPO after midnight before surgery,except medications with 15 cc of water. Medication instructions provided according to the PAT guidelines. History Surgery Operation Date: 02/03/25 12:20 Proposed Procedures p Right Anterior Total Hip Arthroplasty - Indra Tobin, Height/Weight Height: 5 ft 6 in Weight: 82.6 kg Allergies Allergy/AdvReac Type Severity Reaction Status Date / Time adhesive tape Allergy Unknown Redness of Verified 12/15/24 12:45 Skin nickel Allergy Unknown Ears "get Verified 12/28/24 13:11 infected with cheap jewelry" Medications Home Medications Medication Instructions Recorded Confirmed Last Taken atorvastatin 10 mg tablet 10 mg PO QAM 04/26/24 12/15/24 08/01/24 04:00 metoprolol succinate 25 mg 25 mg PO QAM 04/26/24 12/15/24 08/01/24 04:00 tablet,extended release 24 hr multivitamin (Daily Multi-Vitamin 1 tab PO DAILY 04/26/24 12/15/24 07/31/24 tablet) cranberry fruit 450 mg tablet 450 mg PO DAILY 06/28/24 12/15/24 07/25/24 (cranberry) fluticasone propionate 50 1 spray intranasal DAILY 06/28/24 12/15/24 08/01/24 04:00 mcg/actuation nasal spray,suspension Nasal Saline [place] 1 dose UD PRN Congestion 12/15/24 12/15/24 Unknown magnesium 200 mg tablet 0 mg PO DAILY 12/15/24 12/15/24 Unknown Past Medical History Medical History Dyslipidemia History of colon polyps History of frequent urinary tract infections No current/recent issues HTN (hypertension) Osteoarthritis Pulmonary nodule "Benign"/Under surveillance Seasonal allergies Snores No formal sleep study Exercise / Class Metabolic Activity II 4-5 Yardwork/Stairs/Walk up hill Past Surgical History Surgical History History of total left hip replacement (07/2024) Hx of arthroscopic knee surgery Right Hx of colonoscopy Hx of tubal ligation Past Anesthesia History No Hx of Anesthesia Complications and No Family Hx of Anesthesia Complications History of PONV No Hx of PONV and No Hx of Motion Sickness Social History Smoking Status: Current every day smoker Do You Dip or Chew Tobacco: No Smoking End Date: 1 PPD Hx Alcohol Use: Yes (not since hip sx, hx social prior to) alcohol intake frequency: holidays/special occasions only Hx Substance Use: No substance use type: does not use Review of Systems Patient denies chest pain, shortness of breath, dyspnea on exertion, fever, chills, cough, wheezing, palpitations. Physical Exam Vital Signs BP 115/75 P 76 TEMP 97.9 SP02 95%RA RESP 18 Physical Full cervical extension range of motion. Full TMJ range of motion. TMD 3 finger breaths Mallampati Score III Dentition: missing sides Lungs: clear throughout to auscultation Cardiac: regular rate and rhythm, no murmurs noted Spine: kyphosis Carotid arteries: negative bruit Extremities: no LE edema Lab Results Anesthesia Preop Results Results Anesthesia Widget: WBC 10.86 K/ul (4.8-10.8) H 12/28/24 Hgb 15.5 g/dl (12.0-16.0) 12/28/24 Hct 45.4 % (37.0-47.0) 12/28/24 Plt 273 K/uL (130-400) 12/28/24 Na 137 mmol/L (136-145) 12/28/24 K 4.3 mmol/L (3.5-5.1) 12/28/24 Cl 105 mmol/L (98-107) 12/28/24 CO2 26 mmol/L (21-32) 12/28/24 BUN 17 mg/dl (6-23) 12/28/24 Creat 0.62 mg/dl (0.6-1.2) 12/28/24 Glucose Level 96 mg/dl (70-99(Fasting)) 12/28/24 PT 10.4 Seconds (9.0-12.0) 12/28/24 PTT 32 Seconds (21-31) H 12/28/24 INR 1.0 (0.9-1.1) 12/28/24 Blood Type A Positive 12/28/24 Antibody Screen NEGATIVE 12/28/24 Testing Electrocardiogram Date: 07/05/24 Findings: + NSR @ (79bpm) Left anterior fascicular block Possible inferior infarct, age undetermined [facility] into chart (similar in appearance by pe rsonal visual inspection). Echo done 04/01/23* Chest X-Ray Date: 07/05/24 Findings: + NAD Echocardiogram Date: 04/01/23 EF: 55-59% LV Function: normal RWMA: + none Other Findings: + diastolic dysfunction (Grade I ); no LVH Moderate mitral annular calcification. Mitral valve chordae are focally calcified. Mitral stenosis is absent. Significant MR is absent. Other Testing Holter monitor Date: 03/09/23 "The underlying rhythm was predominantly sinus. Overall PAC and PVC burden was low. . No other atrial or ventricular arrhythmias recorded"
--- NOTE | 2025-01-31 07:30 | History & Physical Report ---
Date of Service January 31, 2025 Assessment & Plan (1) Osteoarthritis of right hip: We will proceed with a right anterior total of arthroplasty. Postoperatively, she will be started on aspirin for DVT prophylaxis and kept overnight in the hospital for postop medical management. She plans to have the hospital set up home health for discharge. History of Present Illness Chief Complaint: Osteoarthritis of the right hip. Primary Care Provider: Samra Hess PA-C Aubree is a pleasant 64-year-old female who is now 6 months status post left hip replacement. She is doing very well with that. She is now dealing with a lot of right hip pain. X-rays and clinical examination have been diagnostic for advanced arthritis of the right hip. After failed conservative treatment, she has elected to proceed with a right anterior total of arthroplasty. Allergies Allergy/AdvReac Type Severity Reaction Status Date / Time adhesive tape Allergy Unknown Redness of Verified 12/15/24 12:45 Skin nickel Allergy Unknown Ears "get Verified 12/28/24 13:11 infected with cheap jewelry" Home Medications Medication Instructions Recorded Confirmed Type atorvastatin 10 mg tablet 10 mg PO QAM 04/26/24 12/15/24 History metoprolol succinate 25 mg 25 mg PO QAM 04/26/24 12/15/24 History tablet,extended release 24 hr multivitamin (Daily Multi-Vitamin 1 tab PO DAILY 04/26/24 12/15/24 History tablet) cranberry fruit 450 mg tablet 450 mg PO DAILY 06/28/24 12/15/24 History (cranberry) fluticasone propionate 50 1 spray intranasal DAILY 06/28/24 12/15/24 History mcg/actuation nasal spray,suspension Nasal Saline [place] 1 dose UD PRN Congestion 12/15/24 12/15/24 History magnesium 200 mg tablet 0 mg PO DAILY 12/15/24 12/15/24 History amoxicillin 500 mg tablet 2,000 mg (4 x 500 mg) PO ONCE #4 01/18/25 Rx tabs Past Med/Surg History Problem List Osteoarthritis of right hip Medical History History of frequent urinary tract infections No current/recent issues History of colon polyps Snores No formal sleep study Seasonal allergies HTN (hypertension) Pulmonary nodule "Benign"/Under surveillance Dyslipidemia Osteoarthritis Surgical History History of total left hip replacement (07/2024) Hx of colonoscopy Hx of arthroscopic knee surgery Right Hx of tubal ligation Social History Smoking Status: Current every day smoker Tobacco Type: Cigarettes Smoking End Date: 1 PPD; Second Hand Exposure: Yes; Do You Dip or Chew Tobacco: No; Hx Alcohol Use: Yes (not since hip sx, hx social prior to) Hx Substance Use: No Preferred Language: Latvian Communication Ability: Effective Contact Center Assistant Required: No Beliefs That Will Affect Care: None Current Living Situation: Other Current Living Situation Comment: partner Feels Safe at Home: Yes Assistive Devices: Glasses Review of Systems All systems reviewed & are unremarkable except as noted in HPI & below. Physical Exam On physical exam of the right hip, she has decreased range of motion. She has pain with forced internal/external rotation. All of her pains located in the groin.. Constitutional WD/WN, vitals as above Eyes PERRL, conjunctivae normal, anicteric sclerae ENMT external ear and nose normal, oropharynx normal Neck trachea midline, no thyromegaly Respiratory normal respiratory effort Cardiovascular RRR, no murmur, no edema Gastrointestinal (Abdomen) normal bowel sounds, soft, nontender, no hepatosplenomegaly Psychiatric A+Ox3, euthymic affect Results & Data Results & Data Laboratory Results . Diagnostic Findings X-rays of the right hip show advanced osteoarthritis with joint space narrowing, osteophyte formation, and [id number] articulation. PG Care Time/CCT Total # of Minutes Spent Total Time Spent with Patient: Total time spent is greater than 50% in coordination of care (as documented) at patient's floor/unit and/or counseling patient: Coding Level of Care Code None Diagnoses Osteoarthritis of right hip M16.11
--- NOTE | 2025-02-03 08:18 | History & Physical Bridge Note ---
Date of Service February 03, 2025 History & Physical Bridge Note I have examined the patient, reviewed the History & Physical and in the interval since the performance of the History & Physical I have noted the following changes of clinical significance: no changes noted
--- NOTE | 2025-02-03 10:18 | Operative Report ---
PG Post Operative Report Pre & Post Diagnosis Operation Date: 02/03/25 09:00 Pre-Op Diagnosis: Osteoarthritis of right hip Post-Op Diagnosis: Osteoarthritis of right hip I identified the patient and participated in the time-out.: Yes Procedure Operation Date: 02/03/25 09:00 Actual Procedures p Right Anterior Total Hip Arthroplasty(Right) - Indra Tobin DO Surgeon Indra Tobin DO Floral Specialist Scott Thompson PA-C Estimated Blood Loss 200 Findings Consistent with Post-Op Diagnosis Specimens Right femoral head Description of Procedure Implants used I used a Zimmer[employer]omet total hip arthroplasty system with a size 3 standard offset Z1 stem, a 48 mm G7 cup with a 25mm screw, an E1 polyethylene liner, a 32 mm ceramic head with a +3.5 neck. Aubree arrived at the hospital for the above procedure. She was seen in the preoperative holding area and the operative extremity was identified and signed. She was given a spinal anesthetic, a preoperative antibiotic, and TXA. She was then taken back to the operating room and laid on the table in the supine position. She was given basic sedation. The operative leg was secured to a Puristst leg positioner. The hip was then prepped and draped in sterile fashion. A timeout was done and the patient and the operative extremity was properly identified. An anterior approach was used. Dissection was taken down through the fascia and the tensor muscle belly was retracted laterally and the rectus was retracted medially. The circumflex vessels were identified and ligated. The capsule was then incised and tagged for later repair. The femoral neck was then cut and the femoral head was removed. The acetabulum was exposed. Time was spent doing a complete circumferential labral release. Sequential reaming of the acetabulum up to a size 47 reamer was done. Final reamings were done under fluoroscopy to ensure appropriate version. A Biomet 48 mm G7 cup was then impacted into place. A single 25 mm screw was placed. The E1 polyethylene liner was then snapped into place. Surrounding soft tissues were then injected with 100 cc of an orthopedic pain control cocktail. The proximal femur was then exposed. Sequential broaching up to a size 3 broach was done. Off that broach a size 32 head with a +3.5 neck was trialed. The hip was reduced and fluoroscopic images showed anatomic alignment of the implants in acceptable length. The broach was removed. The final size 3 standard offset Z1 stem was then impacted into place. A ceramic 32 mm head with a +3.5 neck was then impacted onto the stem and the hip was reduced. Final fluoroscopic images showed anatomic alignment of the hip. The capsule was then closed with #1 Vicryl suture. A dilute betadyne lavage was then done for 3 minutes. The joint was then irrigated with normal saline solution. The fascia was closed with #1 PDS suture. Skin was closed with 2-0 Vicryl, rona, and a Silverlon dressing. She was then transferred to a hospital bed and taken to the post anesthesia care unit in stable condition. She tolerated the procedure well. Scott Thompson PA-C, was present for the entire procedure. He was critical for patient positioning, prepping, draping, retraction exposure, wound closure and application of sterile dressing. I attest to the content of the Intraoperative Record and any orders documented therein. Any exceptions are noted below.
--- NOTE | 2025-02-03 11:07 | XRay Report ---
XR hip 1V RT w pelvis CLINICAL HISTORY: IN PACU - Post Surgical COMPARISON: 08/01/2024 FINDINGS: Bilateral hip prostheses show no hardware complication. There is expected soft tissue gas on the right. IMPRESSION: Unremarkable postoperative exam. ACT 112: Negative or not required by law. Electronically signed by: Ronni Ashford M.D. 02/03/2025 11:06 AM
--- NOTE | 2025-02-03 11:18 | Anesthesiology Progress Note ---
Date of Service February 03, 2025 Anesthesia Post Procedure Vital Signs Vital Signs: Temp Pulse Pulse Resp BP Pulse Ox O2 Del Method 02/03/25 11:15 76 21 102/68 97 Nasal Cannula 02/03/25 11:05 78 16 100/72 98 Nasal Cannula 02/03/25 10:55 79 24 103/56 L 98 Nasal Cannula 02/03/25 10:46 36.2 C L 87 19 95/64 L 93 Nasal Cannula 02/03/25 07:11 36.5 C 84 20 153/91 H 98 Room Air O2 Flow Rate 02/03/25 11:15 2 02/03/25 11:05 4 02/03/25 10:55 4 02/03/25 10:46 4 02/03/25 07:11 Transfer of Care Handoff Completed per policy Notes Mental Status: alert / awake / arousable Patient Amnestic to Procedure: Yes Nausea / Vomiting: adequately controlled Pain: adequately controlled Airway Patency, RR, SpO2: stable & adequate BP & HR: stable & adequate Hydration State: stable & adequate Neuraxial Anesthesia: was administered and sensory block is resolving Anesthetic Complications: no major complications apparent
--- NOTE | 2025-02-03 12:17 | Fluoroscopy Report ---
FL hip RT 1V CLINICAL HISTORY: RT ANTERIOR HIP COMPARISON STUDY: None FLUOROSCOPY TIME: 10 seconds FLUOROSCOPY IMAGES: 1 EXPOSURE DOSE: 1.2 mGy FINDINGS: Fluoroscopy was provided for right hip prosthesis. IMPRESSION: Intraoperative fluoroscopy. ACT 112: Negative or not required by law. Electronically signed by: Ronni Ashford M.D. 02/03/2025 12:15 PM
[2025-02-04 03:29] VITALS: TEMP 97.7
--- NOTE | 2025-02-04 07:26 | Discharge Summary ---
Date of Service February 04, 2025 Admission HPI (Per Admitting) Aubree is a pleasant 64-year-old female who is now 6 months status post left hip replacement. She is doing very well with that. She is now dealing with a lot of right hip pain. X-rays and clinical examination have been diagnostic for advanced arthritis of the right hip. After failed conservative treatment, she has elected to proceed with a right anterior total of arthroplasty. Admission Exam (Per Admitting) On physical exam of the right hip, she has decreased range of motion. She has pain with forced internal/external rotation. All of her pains located in the groin.. Principal Diagnosis Same as "Discharge Diagnosis" noted below under Discharge Instructions. Discharge Exam On physical exam of the right hip, the dressing is clean and dry. She has active dorsiflexion plantarflexion of her right ankle. Sensations intact throughout.. Discharge Data Procedures Performed Operation Date: 02/03/25 09:00 Actual Procedures p Right Anterior Total Hip Arthroplasty(Right) - Indra Tobin DO Ordered Studies 02/03/25 09:00 FL hip RT 1V Routine Hospital Course (1) Status post right hip replacement: On February 03, [address] [facility] and underwent a right hip replacement without complication. She had a spinal anesthetic. Postoperat ively, she was started on aspirin for DVT prophylaxis and transferred to the general orthopedic floors. Her hospital course was uneventful. On postop day #1, her vital signs were stable and her pain was well-controlled. She was able to participate well with physical therapy doing ambulation and range of motion exercises. She was then discharged to home. She will follow-up with orthopedics in 2 weeks. PG Care Time/CCT Total # of Minutes Spent Total Time Spent with Patient: Total time spent is greater than 50% in coordination of care (as documented) at patient's floor/unit and/or counseling patient: Discharge Plan Discharge Items Patient Disposition: Home - Self-Care Reason For Visit: Right Hip Arthritis Discharge Diagnosis: Right hip replacement Activity: Per Instructions section Non-emergency contact: Surgeon Call non-emergency contact if: your wound has increased redness and your wound has increased drainage Follow-up/Referrals: Samra Hess PA-C [Primary Care Provider] - Diet: Regular Addtl Attending Provider Instructions: Activity and Therapy Recommendations: * If you are using [facility] then therapy will be provided at your home until they feel you have accomplished all of your goals. * If you are using [facility] then Physical Therapy will be provided until they feel you are ready to start Outpatient Physical Therapy. * If you are not using home therapy then Outpatient Physical Therapy should start about 3-5 days from your day of surgery. Therapy will last about 6-10 weeks * You were shown a series of exercises in the hospital. Do these exercises three times each day including the exercises you were shown in physical therapy. * Get up and walk several times each day.~ For the first four weeks, try not to stand or walk for more than one hour at a time. If you do stand or walk for more than one hour, you will not hurt anything, but your leg will likely swell.~~ * As you feel comfortable, you may change from the walker or crutches to a cane and~then to independent walking. Medications: * Narcotic You will likely be sent home from the hospital with a prescription for the narcotic pain medication that worked best throughout your stay. * Cefadroxil -take the antibiotic twice a day for 10 days to help prevent infection. * Aspirin Most patients will be required to take Aspirin 81mg twice a day for 6 weeks after surgery. This is obtained [id number] and a prescription is not necessary. * Other medications may be prescribed for specific circumstances. If you have any questions, please call the office at . * Resume previous home medications unless otherwise instructed TEDs/Elastic Stockings: The white elastic stockings help limit swelling and prevent blood clots from forming in your legs. The more you wear them, the more they work. Wear them for 2 weeks. Dressing Care: Leave the Silverlon dressing in place for 7 days. After 7 days you may remove the dressing. Do not remove the Ketchum zip closure. If the incision is not draining then you may leave the Ketchum zip closure open to air. If there is a little bit of drainage or if the Ketchum zip closure is getting stuck on your clothing then cover the incision with a dry dressing. The Krystal zip closure will be removed at your 2 week follow-up appointment. Showering: You may shower with the Silverlon dressing in place. Do not let the shower spray hit the dressing directly. Pat the Silverlon dressing dry. If the dressing becomes wet underneath, then simply remove the dressing. Keep the incision dry until you are 7 days out from the day of surgery. After 7 days you may remove the Silverlon dressing and shower with the Krystal zip closure exposed. Let soapy water run over the Krystal zip closure and pat them dry. Do not scrub or soak the incision. Diet: You may resume your previous diet. Things To Watch For: * Drainage from the incision site that occurs more than one week after your surgery. * Increased redness at the incision site. * Fever above 102 degrees Fahrenheit. * Unusual chest pain or shortness of breath. * Call [facility] at with any of the above problems Follow-Up Visit: Follow-up with Dr. Tobin's office 2-3 weeks after your day of surgery. We will remove your Krystal zip closure and answer any questions. If you have any additional questions or concerns, Dr Tobin is usually in the office at the same time and will be available An appointment was probably scheduled when you signed-up for surgery in the office. If you have any questions call Office Instructions: More detailed instructions as well as Frequently Asked Questions were provided in a folder by our office when you signed-up for surgery. Please review these instructions when you get home. If you have any further questions or concerns, please feel free to call the office at [phone] Pending Studies at Discharge: No Stand-Alone Forms: [facility] Sm[facility] Cessation Medications and DC Order Prescriptions: New cefadroxil 500 mg capsule 500 mg PO BID 10 Days Qty: 20 0RF oxycodone 5 mg tablet 5 mg PO Q6H PRN (Reason: pain) Qty: 30 0RF aspirin 81 mg Tablet,Delayed Release (Dr/Ec) 81 mg PO BID 42 Days Qty: 84 0RF Continued amoxicillin 500 mg tablet 2,000 mg PO ONCE Qty: 4 3RF Rx Instructions: 4 tabs 1 hour prior to procedure metoprolol succinate 25 mg tablet extended release 24 hr 25 mg PO QAM atorvastatin 10 mg tablet 10 mg PO QAM multivitamin [Daily Multi-Vitamin] Tablet 1 tab PO DAILY fluticasone propionate 50 mcg/actuation Sparks,Suspension 1 spray INTRANASAL DAILY Rx Instructions: administer into each nostril cranberry 450 mg Tablet 450 mg PO DAILY Rx Instructions: administer with a meal magnesium 200 mg Tablet 0 mg PO DAILY Nasal Saline Sparks 1 dose UD PRN (Reason: Congestion) Discharge Orders: Discharge Order (Routine); Ordered 02/04/25 Ordered By: Indra Tobin Admission Data Admit Date/Time: 02/03/25 09:59 Attending Provider: Indra Tobin Admit Provider: Indra Tobin Primary Care Provider: Samra Hess Other Providers: [facility],Home Healthcare
--- NOTE | 2025-02-04 07:26 | Orthopedic Progress Note ---
Date of Service February 04, 2025 Assessment & Plan (1) Status post right hip replacement: Overall she is doing fairly well. She is having a little bit more pain in her right hip into her right knee than she remembers from the other procedure. However, everything looks okay. The spinal anesthetic seems to have worn off quicker this time. She is on aspirin for DVT prophylaxis. She will be seen by physical therapy today for ambulation and range of motion exercises. She can be discharged home later today. She will follow-up with orthopedics in 2 weeks. Kassy Mak was seen and examined at bedside this morning. Overall she is doing fairly well. She is not having much pain in the right hip. She has been up and ambulating to the bathroom. She has no complaints.. Review of Systems All systems reviewed & are unremarkable except as noted in HPI & below. Physical Exam On physical exam of the right hip, the dressing is clean and dry. She has a ctive dorsiflexion plantarflexion of her right ankle. Sensations intact throughout.. Results & Data Results & Data Laboratory Results . Diagnostic Findings Postoperative x-rays of the right hip show the prosthesis to be in anatomic alignment without any evidence of fracture, dislocation, or loosening.. PG Care Time/CCT Total # of Minutes Spent Total Time Spent with Patient: Total time spent is greater than 50% in coordination of care (as documented) at patient's floor/unit and/or counseling patient: Coding Level of Care Code 41863 Post Operative Follow-Up Diagnoses Status post right hip replacement Z96.641
[2025-02-04 07:50] VITALS: BP 118/75; PULSE 83; RESP 16; O2SAT 96
== END 2025-02-04 10:45 | disposition home or self-care (01) ==
LOC: ASU 06:52 → 3W 06:52